=== PATIENT | female | born 2000 | race Caucasian/White ===

== ENCOUNTER 2023-01-24 16:23 | Emergency (ER) | payer OTHER, MEDICAID ==
[~2023-01-24] VITALS: Ht 165.1 cm; Wt 59.0 kg
[2023-01-24 17:16] VITALS: BP_SYST 127
[2023-01-24] MEDS ORDERED: methocarbamoL 500 MG TABLET PO ONE (19:00)
[2023-01-24] MEDS ORDERED: ACETAMINOPHEN 500 MG TABLET PO ONE (19:00)
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
[2023-01-24] MEDS ORDERED: METH-634 PO (19:41)
[2023-01-24] MEDS ORDERED: IBUP-1969 PO (19:41)
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
--- NOTE | 2023-01-24 20:01 | NUR ---
KAY WRAP APPLIED TO LEFT HAND, PER MD ORDER. PT STATES THE WRIST FEELS SUPPORTED AND COMFORTABLE IN WRAP.
[2023-01-24 20:07] VITALS: BP_SYST 127
--- NOTE | 2023-01-24 20:07 | NUR ---
Patient given written and verbal discharge instructions and verbalizes understanding. ER DR. WIGGINS discussed with patient the results and treatment provided. Patient in stable condition. ID arm band removed. Rx of IBUPROFEN AND ROBAXIN given. Patient educated on pain management and to follow up with PMD. Pain Scale 0. Opportunity for questions provided and answered. Medication side effect fact sheet provided.
== END 2023-01-24 20:07 | disposition home or self-care (01) ==
LOC: SED 16:23
DX: S13.4XXA Sprain of ligaments of cervical spine, initial encounter (principal); S63.502A Unspecified sprain of left wrist, initial encounter; Z79.899 Other long term (current) drug therapy; V89.2XXA Person injured in unspecified motor-vehicle accident, traffic, initial encounter; Y93.89 Activity, other specified; Y92.89 Other specified places as the place of occurrence of the external cause; Y99.8 Other external cause status
CPT/HCPCS: 99283